=== PATIENT | female | born 1970 | race Caucasian/White ===

== ENCOUNTER 2018-05-31 17:14 | Inpatient (IN) | payer OTHER ==
[~2018-05-31] VITALS: Ht 165.1 cm; Wt 87.3 kg
--- NOTE | ~2018-05-31 | HEMODYNAMI ---
PATIENT:JAYSON ABURTO MEDICAL RECORD: [id number] : 74 LOCATION:[facility] D.2119 ADMISSION DATE: 06/01/18 Generatedon:06/01/201816:36 Patient name: JAYSON ABURTO Patient #: [id number] SSN: DO B: 1970 Date of study: 06/01/2018 Page: Of Hemodynamic Procedure Report Patient Data Patient Demographics Procedure consent was obtained First Name: JAYSON Gender: Female Last Name: CRISELDA : 1970 Patient #: [id number] Age: 48 year(s) Race: Additional ID: [id number] Contact details Address: [address] [place] [address] State: [facility] Zip code: [address] Admission Admission Data Admission Date: 06/01/2018 Admission Time: 15:23 Room #: D.2119 Procedure Procedure Types Cath Procedure Diagnostic Procedure LHC LH w/Coronaries Sedation Charges Moderate Sedation up to 15 minutes PCI Procedure Coronary Stent Coronary Stent Initial Procedure Description Procedure Date Procedure Date: 06/01/2018 Procedure Start Time: 16:14 Procedure End Time: 16:33 Procedure Staff Name Function Taqueria Villa MD Performing Physician Magaly Sanabria RT Monitor Brenda Dutton RT Scrub Sincere Joseph RN Nurse Procedure Data Cath Procedure Fluoroscopy Diagnostic fluoroscopy Total fluoroscopy Time: 4.9 time: 4.9 min min Diagnostic fluoroscopy Total fluoroscopy dose: 793 dose: 793 mGy mGy Contrast Material Contrast Material Type Amount (ml) Isovue 300 81 Entry Location Entry Primary Successful Side Size Upsize Upsize Entry Closure [place] ccessful Closure Location (Fr) 1 (Fr) 2 (Fr) Remarks Device Remarks Radial Right 6 Fr Mechanical artery Short Compression Estimated blood loss: 5 ml Procedure Complications No complications Procedure Medications Medication Administration Route Dosage 0.9% NaCl I.V. 100 ml/hr Oxygen etCO2 Nasal cannula 2 l/min Heparin Flush Bag added to field 2 bags (1000units/500ml NS) Lidocaine 2% added to field 20 Radial Cocktail added to field 1 syringe (Verapomil 2mg/Nitro 400mcg/Heparin 1500units) Versed I.V. 1 mg Fentanyl I.V. 50 mcg Radial Cocktail I.A. 1 syringe (Verapomil 2mg/Nitro 400mcg/Heparin 1500units) Versed I.V. 1 mg Fentanyl I.V. 50 mcg Heparin Bolus I.V. 5000 units Hemodynamics Rest Heart Rate: 71 (bpm) Snapshots Pre Cath Intra NCS Post Cath Vital Signs Time Heart Resp SPO2 etCO2 NIBP (mmHg) Rhythm Pain Sedation Rate (ipm) (%) (mmHg) Status Level (bpm) 16:10:13 71 18 96 33.9 182/111(145) NSR 0 (11) 10(A) , No pain 16:14:29 80 13 94 35.4 159/99(134) NSR 0 (11) 10(A) , No pain 16:18:39 86 10 94 35.4 155/96(110) NSR 0 (11) 10(A) , No pain 16:22:49 88 12 94 28.6 162/89(115) NSR 0 (11) 10(A) , No pain 16:27:07 61 17 20.3 118/70(88) NSR 0 (11) 10(A) , No pain 16:32:00 66 33 100 31.7 145/87(106) NSR 0 (11) 10(A) , No pain Medications Time Medication Route Dose Verified Delivered Reason Not es Effectiveness by by 16:10:55 0.9% NaCl I.V. 100 Sincere Sincere Per physician ml/hr Opal Joseph RN RN 16:11:03 Oxygen etCO2 2 l/min Sincere Sincere Per physician Nasal Opal Joseph cannula RN RN 16:11:14 Heparin Flush added 2 bags Sincere Sincere used for Bag to Lorigan Lorigan procedure (1000units/500ml [facility] RN RN NS) 16:11:26 Lidocaine 2% added 20ml Sincere Sincere for local to vial Lorigan Lorigan anesthetic RN RN 16:11:38 Radial Cocktail added 1 Sincere Sincere used for (Verapomil to syringe Lorigan Lorigan procedure 2mg/Nitro field RN RN 400mcg/Heparin 1500units) 16:11:49 Versed I.V. 1 mg Sincere Sincere for sedation Opal Joseph RN, RN 16:11:58 Fentanyl I.V. 50 mcg Sincere Sincere for sedation Opal Joseph RN, RN 16:17:25 Radial Cocktail I.A. 1 Sincere Taqueria for (Verapomil syringe Lorigan Allen vasodilation 2mg/Nitro MADHAVI FUCHS 400mcg/Heparin 1500units) 16:17:33 Versed I.V. 1 mg Sincere Sincere for sedation Opal Joseph RN, RN 16:17:38 Fentanyl I.V. 50 mcg Sincere Sincere for sedation Opal Joseph RN, RN 16:22:29 Heparin Bolus I.V. 5000 Sincere Sincere for units Opal Joseph anticoagulation M[facility]AVI [facility]DRICKSONgreens keeper Log Time Note 15:48:02 Informed consent obtained and on chart 15:48:43 Diagnostic Cath Status : Elective 15:48:50 Sincere Joseph RN sent for patient. Start room use. 15:48:51 Time tracking: Regular hours (M-F 7:00 - 5:00) 15:48:55 Plan of Care:Hemodynamics will remain stable., Cardiac rhythm will remain stable., Comfort level will be maintained., Respiratory function will remain adequate., Patient/ family verbilizes understanding of procedure., Procedure tolerated without complication., Recovers from procedure without complications.. 15:59:59 Patient received from Med II to [facility] 2 Alert and oriented. Tansferred to table in Supine position. 16:00:00 Warm blankets applied, and mary hugger turned on for patient comfort. 16:00:01 Correct patient and procedure confirmed by team. 16:00:01 ECG and BP/O2 sat monitors applied to patient. 16:09:10 Baseline sample Acquired. 16:09:10 Vital chart was started 16:09:13 Rhythm: sinus rhythm 16:09:14 Full Disclosure recording started 16:09:17 H&P Date Dictated: 06/01/2018 New H&P dictated by physician.. 16:09:18 Pre-procedure instructions explained to patient. 16:09:20 Family in waiting room. 16:09:22 Pre-op teaching completed and patient verbalized understanding. 16:09:23 Patient NPO since Midnight. 16:09:24 Is the patient allergic to Iodine/contrast media? No. 16:09:25 Was the patient premedicated? No 16:09:26 Is patient on blood thinner?Yes 16:09:28 ACC The patient was administered the following blood thiners within the last 24 hours: ACCPlavix 16:10:48 Patient diabetic? No. 16:10:50 Previous problem with sedation/anesthesia? No ? 16:10:52 Snore? Yes 16:10:53 Sleep apnea? No 16:10:54 Deviated septum? No 16:10:54 Opens mouth fully? Yes 16:10:55 0.9% NaCl 100 ml/hr I.V. was administered by Sincere Joseph RN; Per physician; 16:10:55 Sticks out tongue? Yes 16:10:56 Airway obstruction? No ? 16:10:59 Dentures? No ? 16:11:01 Pre procedure: right dorsailis pedis pulse 2+ Normal; easily identifiable; not easily obliterated 16:11:03 Oxygen 2 l/min etCO2 Nasal cannula was administered by Sincere Joseph RN; Per physician; 16:11:03 Pre procedure: left dorsailis pedis pulse 2+ Normal; easily identifiable; not easily obliterated 16:11:05 Patient pain scale 0/10 ?. 16:11:11 IV patent on arrival in right forearm with 0.9% NaCl at [facility]. 16:11:13 Lab results completed and on chart. 16:11:14 Heparin Flush Bag (1000units/500ml NS) 2 bags added to field was administered by Sincere Joseph RN; used for procedure; 16:11:16 Right Radial & Right Groin area was prepped with chlora-prep and draped in sterile fashion 16:11:17 Alarms reviewed by R. N. 16:11:18 Sharps counted by scrub and verified by R.N. 16:11:19 Physician arrived 16:11:20 --------ALL STOP TIME OUT------ 16:11:20 Final Timeout: patient, procedure, and site verified with staff and physician. All members of the team are in agreement. 16:11:22 Right Radial & Right Groin site verified by team. 16:11:24 Physical assessment completed. ASA score P 2 - A patient with mild systemic disease as per Taqueria Villa MD. 16:11:26 Lidocaine 2% 20ml vial added to field was administered by Sincere Joseph RN; for local anesthetic; 16:11:27 Sedation plan: IV Moderate Sedation Medication:Versed, Fentanyl 16:11:30 Use device set Radial Dx or PCI 16:11:31 ACIST Syringe (82984) opened to sterile field. 16:11:31 Medline Cath Pack ([id number]) opened to sterile field. 16:11:32 Bag Decanter (2002S) opened to sterile field. 16:11:32 DIAGNOSTIC WIRE .035 260cm J wire (705048) opened to sterile field. 16:11:33 ACIST Hand Control (57515) opened to sterile field. 16:11:33 ACIST Manifold (16372) opened to sterile field. 16:11:33 Tegaderm 4 x 4 (1626W) opened to sterile field. 16:11:34 MBrace Wrist Support ([id number]) opened to sterile field. 16:11:38 Radial Cocktail (Verapomil 2mg/Nitro 400mcg/Heparin 1500units) 1 syringe added to field was administered by Sincere Joseph RN; used for procedure; 16:11:49 Versed 1 mg I.V. was administered by Sincere Joseph RN; for sedation; 16:11:58 Fentanyl 50 mcg I.V. was administered by Sincere Joseph RN; for sedation; 16:12:10 SHEATH 6FR RAIN ([id number]) NO COST SUPPLY opened to sterile field. 16:14:27 Procedure started. 16:14:47 Local anesthetic to right radial artery with Lidocaine 2% by Taqueria Villa MD.INITIAL ACCESS ONLY 16:17:12 A 6 Fr Short sheath was inserted into the Right Radial artery 16:17:25 Radial Cocktail (Verapomil 2mg/Nitro 400mcg/Heparin 1500units) 1 syringe I.A. was administered by Taqueria Villa MD; for vasodilation; 16:17:33 Versed 1 mg I.V. was administered by Sincere Joseph RN; for sedation; 16:17:38 Fentanyl 50 mcg I.V. was administered by Sincere Joseph RN; for sedation; 16:19:03 LCA angiography performed. 16:19:06 Injector settings: Ml/sec: 3, Volume: 6, 16:21:29 RCA angiography performed. 16:21:32 Injector settings: Ml/sec: 3, Volume: 6, 16:21:36 Catheter removed. 16::59 GUIDE 6FR XBLAD 3.5 catheter ([id number]) opened to sterile field. 16:22:01 INFLATOR Merit BasixCompak (PJ3696) opened to sterile field. 16:22: WHISPER 300cm guide wire ([id number]) opened to sterile field. 16:22:13 6 Fr xblad 3.5 guide catheter was inserted over the wire 16::17 whisper wire advanced. 16::29 Heparin Bolus 5000 units I.V. was administered by Sincere Joseph RN; for anticoagulation; 16::55 Wire advanced across lesion. 16:28:58 Place stent Inflation Number: 1 A CALISTA OTW 3.0 x 15 stent ([id number]) was prepped and advanced across the 1st Ob Jennifer. The stent was deployed at 16 SEBASTIEN for 0:30 (min:sec). 16:31:05 Stent catheter was removed intact over wire. 16:31:05 Wire removed. 16:31:05 Guide catheter removed. 16:31:08 TR BAND Standard ([id number]) opened to sterile field. 16:32:36 Sheath removed intact; hemostasis achieved with Mechanical Compression to the Right Radial artery. 16:32:37 Procedure ended.(Physican Out) 16:32:47 Fluoroscopy time 04.90 minutes. 16:32:50 Fluoroscopy dose: 793 mGy 16:32:50 Flurop Dose total: 793 16:32:54 Contrast amount:Isovue 300 81ml. 16:32:56 Sharps counted by scrub and verified by R.N. 16:33:00 TR band inflated with 10cc of air. 16:33:01 Insertion/operative site no bleeding no hematoma. 16:33:04 Post right radial artery:stable 16:33:06 Post Procedure Pulses reassessed and unchanged 16:33:08 Post procedure rhythm: unchanged. 16:33:10 Estimated blood loss: 5 ml 16:33:12 Post procedure instruction explained to patient.Patient verbalizes understanding. 16:33:12 Patient needs reinforcement of post procedure teaching. 16:33:28 Procedure type changed to Cath procedure, Diagnostic procedure, LHC, LHC w/Coronaries, Sedation Charges, Moderate Sedation up to 15 minutes, PCI procedure, Coronary Stent, Coronary Stent Initial 16:33:29 Procedure and supply charges have been captured, reviewed, submitted and are correct. 16:33:33 Procedure Complication : No complications 16:33:36 Vital chart was stopped 16:33:36 See physician's report for complete and final results. 16:33:44 Report given to [facility]. 16:33:47 Patient transfered to [facility] with Stretcher. 16:33:50 Procedure ended. 16:33:50 Full Disclosure recording stopped 16:34:04 ACC-PCI Only Patient was given prescriptions, or instructed by Taqueria Villa MD to start/continue the following medications upon discharge: Plavix 16:34:05 End room use (Document Last) Intervention Summary Intervention Notes Time ActionType Lesion and Equipment Action# Pressure Duration Attributes Used 16:28:58 Place stent 1st Ob Jennifer CALISTA OTW 3.0 1 16 00:30 x 15 stent ([id number]) Device Usage Item Name Manufacture Quantity Catalog Hospital Part Current Mini [facility] Lot# / Number Charge Number Stock Stock Serial# Code ACIST Syringe Acist 1 09022 526504 544812 843440 20 (81741) Medical Systems Inc Medline Cath Medline 1 [id number] 629237 62107 148423 5 Pack ([id number]) Bag Decanter Microtek 1 2001S 913318 18572 314505 5 (2001S) Medical Inc. DIAGNOSTIC [facility] [place] 1 917000 611524 921310 282939 30 WIRE .035 260cm J wire (041177) ACIST Hand Acist 1 67552 732917 498885 379763 5 Control Medical (60985) Systems Inc ACIST Acist 1 34913 494062 275597 826998 5 Manifold Medical (22434) Systems Inc Tegaderm 4 x 3M 1 1626W 432490 004606 849330 5 4 (1626W) MBrace Wrist Advanced 1 140-0250-00 654319 98443 912913 5 Support Vascular (234346604) Dynamics SHEATH 6FR Cardinal 1 2965083 950072 614323 5 [facility] (8482699) NO COST SUPPLY GUIDE 6FR Cardinal 1 [id number] 925217 960111 224112 10 XBLAD 3.5 Health catheter (98197391) INFLATOR Merit 1 QA0330 449219 479660 455053 15 [facility] Medical BasixCompak (KO2560) WHISPER 300cm Gage 1 [id number] 666103 543061 481754 5 guide wire Vascular (4543297SM) CALISTA OTW 3.0 Medtronic 1 [id number] 378798 2682935 932197 5 [id number] x 15 stent ([id number]) TR BAND Terumo 1 [id number] 717599 938449 578665 40 Standard ([id number]) Signature Audit [place] Stage Time Signature Unsigned Intra-Procedure 06/01/2018 Magaly Sanabria 4:36:32 PM RT(R) Signatures Monitor : Magaly Sanabria RT Signature : Date : Time : [facility] [address] [place] [address]
--- NOTE | 2018-05-31 19:43 | NUR ---
REPORT RECEIVED FROM RAGHU HENDRICKSON.
[2018-05-31 19:44] LABS: CKMB 1.6 U/L (0.0-3.6); CREATINE KINASE 52 UL (21-215)
[2018-05-31 19:47] LABS: TROPONIN-I 0.377 ng/mL (0.000-0.060)
[2018-05-31 20:00] VITALS: BP 175/110
[2018-05-31 22:51] VITALS: BP 175/110; BMI 32.0
[2018-06-01] VITALS: BP 124/82
[2018-06-01 01:44] LABS: CKMB 0.9 U/L (0.0-3.6); CREATINE KINASE 49 UL (21-215)
[2018-06-01 04:00] VITALS: BP 129/92
[2018-06-01 07:12] LABS: CKMB 0.5 U/L (0.0-3.6); CREATINE KINASE 40 UL (21-215)
[2018-06-01 07:13] LABS: TROPONIN-I 0.179 ng/mL (0.000-0.060)
--- NOTE | 2018-06-01 07:48 | NUR ---
ASSESSMENT DONE. DENIES NEEDS.
[2018-06-01 08:00] VITALS: BP 136/57
[2018-06-01 08:33] VITALS: Ht 165.1 cm; Wt 87.3 kg
[2018-06-01 08:51] LABS: BASOPHILS 0.3 % (0-2); EOSINOPHILS 1.8 % (0-7); HEMATOCRIT 40.8 % (36.0-48.0); LYMPHOCYTES 22.5 % (15-50); MCH 31.6 pg (26.0-34.0); MCHC 34.3 g/dL (31.0-37.0); MCV 92.1 fL (80.0-100.0); MEAN PLATELET VOLUME 9.4 fL (7.4-10.4); MONOCYTES 6.4 % (2-11); PLATELET COUNT 300 10x3/uL (130-400); RBC 4.43 10x6/uL (4.00-5.40); RDW 13.2 % (11.5-14.5); WBC 10.2 10x3/uL (4.8-10.8)
[2018-06-01 09:02] LABS: CALC OSMOLALITY 271 mosm/kg (275-300); CALCIUM 8.5 mg/dL (8.5-10.1); CHLORIDE - SERUM 103 mmol/L (98-107); CREATININE - SERUM 0.8 mg/dL (0.6-1.3); GLUCOSE 103 mg/dL (74-106); POTASSIUM - SERUM 4.4 mmol/L (3.5-5.1); SODIUM 136 mmol/L (136-145); UREA NITROGEN 13 mg/dL (7-18); eGFR NON AFRICAN AMERICAN 82 mL/min (90-120)
--- NOTE | 2018-06-01 09:33 | NUR ---
RESTS IN BED WITH CALL LIGHT IN REACH. NO NEEDS VOICED AT THIS TIME. WILL MONITOR.
[2018-06-01 12:06] VITALS: BP 143/91
[2018-06-01 15:17] VITALS: BP 140/90
--- NOTE | 2018-06-01 15:55 | NUR ---
TO MERCHANDISER PER BED
--- NOTE | 2018-06-01 19:18 | NUR ---
ASSESSMENT COMPLETE. PT A&O. RESPERATIONS EVEN ON RA. IV TO RIGHT ARM WITH NS INFUSING AT 100 CC/HR, SITE CLEAN AND DRY. INFLATED TR BAND NOTED TO RIGHT WRIST, NO ACITVE BLEEDING OR SWELLING NOTED AROUND INCISION SITE. SPLINT ALSO IN USE. PT DENIES PAIN OR NEEDS, BED LOW, CL IN REACH.
[2018-06-01 20:00] VITALS: BP 133/80
--- NOTE | 2018-06-01 21:13 | NUR ---
SMALL AMOUNT OF AIR RELEASED FROM TR BAND, NO BLEEDING NOTED.
--- NOTE | 2018-06-01 22:15 | NUR ---
TR BAND COMPLETELY REMOVED, NO SWELLING, BLEEDING OR HEMATOMA NOTED. COVERED INCISION WITH FOLEDED 2X2 AND TEGADERM, INSTRUCTED PT TO RESTRICT MOVEMENT OF WRIST AND TO NOTIFY NURSE IF SHE NOTICES ANY SWELLING OR BLEEDING.
[2018-06-02] VITALS: BP 150/84
[2018-06-02 04:00] VITALS: BP 132/92
--- NOTE | 2018-06-02 07:45 | NUR ---
AWAKE NO APPARENT DISTRESS. R RADIAL SITE CLEAN AND DRY NO BLEEDING NO EDEMA.
[2018-06-02 08:58] VITALS: BP 151/87
[2018-06-02] MEDS ORDERED: LOPRESSOR25 MG PO (11:32)
[2018-06-02] MEDS ORDERED: ASPIRIN325 MG PO (11:33)
[2018-06-02] MEDS ORDERED: PROTONIX40 MG PO (11:40)
[2018-06-02] MEDS ORDERED: PLAVIX75 MG PO (11:57)
--- NOTE | 2018-06-02 12:22 | NUR ---
PT UP AND WALKING THE HALLS. RR EVEN AND UNLABORED ON RA. AM MEDICATIONS ADMINISTERED. RECEIVED ORDERS FROM TO DISCHARGE PT ON 75MG PLAVIX ONCE DAILY. PT DENIES ANY NEEDS AT THIS TIME. WILL CTM.
--- NOTE | 2018-06-02 13:52 | MORECARE ---
CASE MANAGEMENT DISCHARGE SUMMARY PATIENT: JAYSON ABURTO UNIT: [id number] ADM DATE: 06/01/18 AGE: 48 : 74 SEX: F ROOM/BED: D.9109 AUTHOR: LESLIE SYLVESTER PHYSICIAN: REFERRING PHYSICIAN: BROOKLYNN BROOKE MD DATE OF SERVICE: 06/02/18 Discharge Plan Patient Name: JAYSON ABURTO Facility: [facility]:[place] : 1970 Planned Disposition: Home Anticipated Discharge Date: 06/03/18 Discharge Date: Expected LOS: 2 Initial Reviewer: [email or web address] Initial Review Date: 06/02/2018 Generated: 06/02/18 2:52 pm DCPIA - Discharge Planning Initial Assessment Updated by [email or web address]: Yasir Raines on 06/02/18 1:52 pm * Is the patient Alert and Oriented? Yes * How many steps to enter\exit or inside your home? NONE * PCP NONE * Pharmacy [facility] IN [place] * Preadmission Environment Home with Family * ADLs Independent * Equipment None * Other Equipment NO MEDICAL EQUIPMENT PROVIDER PREFERENCE * List name and contact numbers for known caregivers / representatives who currently or will assist patient after discharge: DANA ABURTO, SPOUSE, * Verbal permission to speak to the caregivers and representatives has been obtained from the patient. Yes * Community resources currently utilized None * Please name any agencies selected above. NONE * Additional services required to return to the preadmission environment? No * Can the patient safely return to the preadmission environment? Yes * Has this patient been hospitalized within the prior 30 days at any hospital? No Patient Name: JAYSON ABURTO Page [id number] at 1352 All edits/amendments must be made on the electronic document DICTATION DATE: 06/02/18 1352 SUPERVISOR CURING ROOM: DOUGLAS 06/02/18 1352 RPT#: [id number] DC DATE: STATUS: ADM IN [facility] [address] [place] [address] END OF REPORT
--- NOTE | 2018-06-02 13:53 | NUR ---
PT DISCHARGED HOME VIA WHEELCHAIR WITH FAMILY. SCRIPTS GIVEN. PT SIGNED PROPER DISCHARGE INSTRUCTION AND REMOVED ALL VALUABLES FROM THE ROOM. PIV REMOVED WITH CATHETER TIP FULLY INTACT. TELEMETRY REMOVED AND RETURNED.
--- NOTE | 2018-06-02 14:02 | MORECARE ---
CASE MANAGEMENT DISCHARGE SUMMARY PATIENT: JAYSON ABURTO UNIT: [id number] ADM DATE: 06/01/18 AGE: 48 : 74 SEX: F ROOM/BED: D.0820 AUTHOR: HIGINIODOC PHYSICIAN: REFERRING PHYSICIAN: BROOKLYNN BROOKE MD DATE OF SERVICE: 06/02/18 Discharge Plan Patient Name: JAYSON ABURTO Facility: [facility]:[place] : 1970 Planned Disposition: Home Anticipated Discharge Date: 06/03/18 Discharge Date: Expected LOS: 2 Initial Reviewer: [email or web address] Initial Review Date: 06/02/2018 Generated: 06/02/18 3:01 pm Comments DCP- Discharge Planning Updated by [email or web address]: Yasir Raines on 06/02/18 12:[address] Patient Name: JAYSON ABURTO Admission Status: Elective Accout number: [id number] Admission Date: 06-01-2018 : 1970 Admission Diagnosis: Attending: BROOKLYNN BROOKE Current LOS: 1 Anticipated DC Date: 06-03-2018 Planned Disposition: Home Primary Insurance: [employer]ICA[employer] Discharge Planning Comments: CM RECEIVED DISCHARGE ORDER, MET WITH PT AND SPOUSE IN ROOM TO DISCUSS DISCHARGE PLANNING AND NEEDS. JAYSON ABURTO provided verbal consent to discuss current and ongoing needs with/in the presence of: SPOUSE, DANA. PT REPORTS LIVING AT HOME INDEPENDENTLY WITH HER SPOUE. PT HAS NO MEDICAL EQUIPMENT AND NO OUTSIDE SERVICES ASSISTING IN THE HOME. CM DISCUSSED AVAILABILITY OF HOME HEALTH, REHAB SERVICES AND MEDICAL EQUIPMENT. PT DENIES DISCHARGE NEEDS, REPORTS HER SPOUSE IS HERE TO PICK HER UP FOR DISCHARGE HOME NOW. MISSION COORDINATOR NURSE NOTIFIED. Surgical Services Asst: Yasir Raines DCPIA - Discharge Planning Initial Assessment Updated by [email or web address]: Yasir Raines on 06/02/18 1:52 pm * Is the patient Alert and Oriented? Yes * How many steps to enter\exit or inside your home? NONE * PCP NONE * Pharmacy [facility] [place] * Preadmission Environment Home with Family * ADLs Independent * Equipment None * Other Equipment NO MEDICAL EQUIPMENT PROVIDER PREFERENCE * List name and contact numbers for known caregivers / representatives who currently or will assist patient after discharge: DANA ABURTO, SPOUSE, * Verbal permission to speak to the caregivers and representatives has been obtained from the patient. Yes * Community resources currently utilized None * Please name any agencies selected above. NONE * Additional services required to return to the preadmission environment? No * Can the patient safely return to the preadmission environment? Yes * Has this patient been hospitalized within the prior 30 days at any hospital? No Last DP export: 06/02/18 12:52 p Patient Name: JAYSON ABURTO Page [phone] at 1402 All edits/amendments must be made on the electronic document DICTATION DATE: 06/02/18 1401 POCKETBOOK MAKER: DOUGLAS 06/02/18 1401 RPT#: [id number] DC DATE: STATUS: ADM IN [facility] [address] [place] [address] END OF REPORT
--- NOTE | 2018-06-05 12:55 | OP ---
PATIENT NAME: JAYSON ABURTO MEDICAL RECORD: [id number] :74 LOCATION:D.M2 D.2119 ADMISSION DATE:06/01/18 SURGEON: FELICIANO RAMON MD DATE OF OPERATION: 06/01/2018 PROCEDURE: Left heart catheterization, selective coronary angiography, right radial approach. CATHETERS: A 5-Sami sheath, 5/4 left and right Li, 5/4 pig. The procedure was well tolerated. The patient was returned to the qiu. Sheath was removed. TR band was placed. FINDINGS: Left ventriculography in 30-degree MELTON view, not performed. CORONARY ANATOMY: LEFT MAIN: Left main is free of disease. LAD: Free of disease in the diagonal system. CIRCUMFLEX: It is a codominant system. Circumflex has a basically subtotal stenosis at distal portion of 90%. RIGHT CORONARY: Right coronary has about 80% stenosis in mid portion. PLAN: Intervention to the circumflex with intervention to the right at a later date. DESCRIPTION OF PROCEDURE: Using indwelling sheath, EBU 3.5 guiding catheter provided fair guide catheter support followed by 300-cm Whisper wire was placed across the 90% plus stenosis in the circumflex down this portion of the vessel. Stent deployed was 3.0 x 15-mm Rangel drug-eluting stent up to 14 and 16 atmospheres. Final angiography shows excellent resolution of this greater than 90% stenosis with no significant residual. ADE flow was 3 throughout the procedure. We will plan for intervention at a later date. TRANSINT:[id number] Voice Confirmation ID: [id number] DOCUMENT ID: [id number] FELICIANO RAMON MD at 1255 CC: [id number] DICTATION DATE: 06/01/18 1641 GUIDEMAN: 06/01/18 1931 DIS IN 06/02/18 [facility] [address] [facility], [place] [address]
== END 2018-06-02 14:09 | disposition home or self-care (01) | DRG 247 ==
LOC: D.ER 17:14 → D.EDHOLD 18:46 → D.M2 18:46 → OBSVTIME 06-01 15:20 → D.M2 06-01 15:23
PROVIDERS: Family Medicine; Internal Medicine Interventional Cardiology; ADMIT Internal Medicine Nephrology
PROC: B2111ZZ Fluoroscopy of Multiple Coronary Arteries using Low Osmolar Contrast (ICD-10-PCS; 2018-06-01)
PROC: 027034Z Dilation of Coronary Artery, One Artery with Drug-eluting Intraluminal Device, Percutaneous Approach (ICD-10-PCS; principal; 2018-06-01 15:48)
PROC: 4A023N7 Measurement of Cardiac Sampling and Pressure, Left Heart, Percutaneous Approach (ICD-10-PCS; 2018-06-01 15:48)
DX: I21.A1 Myocardial infarction type 2 (principal); F17.213 Nicotine dependence, cigarettes, with withdrawal; I10 Essential (primary) hypertension; G40.909 Epilepsy, unspecified, not intractable, without status epilepticus

== ENCOUNTER 2018-06-30 10:23 | Outpatient (CLI) | payer OTHER ==
[~2018-06-30] VITALS: Ht 162.6 cm; Wt 87.3 kg
--- NOTE | ~2018-06-30 | HEMODYNAMI ---
PATIENT:JAYSON ABURTO MEDICAL RECORD: [id number] : 74 LOCATION:DFAREED ADMISSION DATE: 06/30/18 Generatedon:06/30/201813:30 Patient name: AJYSON ABURTO Patient #: [id number] SSN: DO B: 1970 Date of study: 06/30/2018 Page: Of Hemodynamic Procedure Report Patient Data Patient Demographics Procedure consent was obtained First Name: JAYSON Gender: Female Last Name: CRISELDA : 1970 Patient #: [id number] Age: 48 year(s) Race: Additional ID: [id number] Contact details Address: [address] [place] [address] State: [facility] Zip code: [address] Past Medical History Allergies Allergen Reaction Date Comments Reported Other allergy 06/30/2018 N Admission Admission Data Admission Date: 06/30/2018 Admission Time: 10:23 Admit Source: Other Lab Results Lab Result Date: 06/30/2018 Lab Result Time: 0:00 Biochemistry Name Units Result Min Max BUN mg/dl 21 --(----)-* 7 18 Creatinine mg/dl 0.7 --(*---)-- 0.6 1.3 CBC Name Units Result Min Max Hematocrit % 40.9 -*(----)-- 42 54 Hemoglobin g/dl 14.2 --(*---)-- 13.5 17.5 Procedure Procedure Types Cath Procedure Diagnostic Procedure Sedation Charges Moderate Sedation up to 15 minutes PCI Procedure Coronary Stent Coronary Stent Initial Procedure Description Procedure Date Procedure Date: 06/30/2018 Procedure Start Time: 13:11 Procedure End Time: 13:29 Procedure Staff Name Function Taqueria Villa MD Performing Physician Kel Vivar RT Monitor Trena Long RT Scrub Magaly Sanabria RT Scrub Sincere Joseph RN Nurse Procedure Data Cath Procedure Fluoroscopy Diagnostic fluoroscopy Total fluoroscopy Time: 5.1 time: 5.1 min min Diagnostic fluoroscopy Total fluoroscopy dose: 638 dose: 638 mGy mGy Contrast Material Contrast Material Type Amount (ml) Isovue 300 60 Entry Location Entry Primary Successful Side Size Upsize Upsize Entry Closure Succes sful Closure Location (Fr) 1 (Fr) 2 (Fr) Remarks Device Remarks Femoral Right 6 Fr Exoseal artery Short Estimated blood loss: 10 ml Procedure Complications No complications Procedure Medications Medication Administration Route Dosage 0.9% NaCl I.V. 100 ml/hr Heparin Flush Bag added to field 2 bags (1000units/500ml NS) Lidocaine 2% added to field 20 Versed I.V. 1 mg Fentanyl I.V. 50 mcg Versed I.V. 1 mg Fentanyl I.V. 50 mcg Versed I.V. 1 mg Heparin Bolus I.V. 5000 units Hemodynamics Rest HGB: 14.2 (g/dl) Heart Rate: 59 (bpm) Snapshots Pre Cath Intra NCS Post Cath Vital Signs Time Heart Resp SPO2 etCO2 NIBP (mmHg) Rhythm Pain Sedation Rate (ipm) (%) (mmHg) Status Level (bpm) 12:48:44 60 15 100 38.3 185/106(150) NSR 0 (11) 10(A) , No pain 12:53:04 64 14 100 39.1 180/103(161) NSR 0 (11) 10(A) , No pain 13:01:32 68 13 98 30 156/96(120) NSR 0 (11) 10(A) , No pain 13:05:44 67 14 97 39.8 153/93(123) NSR 0 (11) 10(A) , No pain 13:10:59 68 16 100 37.6 157/99(124) NSR 0 (11) 10(A) , No pain 13:15:15 76 13 98 34.5 131/83(105) NSR 0 (11) 9(A) , No pain 13:19:19 69 14 98 30.8 140/93(128) NSR 0 (11) 9(A) , No pain 13:23:25 76 14 98 36 142/97(124) NSR 0 (11) 9(A) , No pain 13:27:35 81 17 96 36.8 163/106(133) NSR 0 (11) 9(A) , No pain Medications Time Medication Route Dose Verified Delivered Reason Notes Effectiveness by by 12:51:01 0.9% NaCl I.V. 100 Sincere Sincere Per physician ml/hr Opal Joseph RN RN 12:51:21 Heparin Flush added 2 Sincere Sincere used for Bag to bags Opal Joseph procedure (1000units/500ml field RN RN NS) 12:51:32 Lidocaine 2% added 20ml Sincere Sincere for local to vial Opal Joseph anesthetic field RN RN 13:00:39 Versed I.V. 1 mg Sincere Sincere for sedation Opal Joseph RN RN 13:00:47 Fentanyl I.V. 50 Sincere Sincere for sedation mcg Opal Joseph RN RN 13:09:37 Versed I.V. 1 mg Sincere Sincere for sedation Opal Joseph RN RN 13:09:43 Fentanyl I.V. 50 Sincere Sincere for sedation mcg Opal Joseph RN RN 13:12:47 Versed I.V. 1 mg Sincere Sincere for sedation Opal Joseph RN RN 13:14:17 Heparin Bolus I.V. 5000 Sincere Sincere for units Opal Joseph anticoagulation RN appliance tester Log Time Note 12:36:59 Informed consent obtained and on chart 12:37:02 Admit Source: Other 12:37:54 Diagnostic Cath status Elective 12:38:08 Sincere Joseph RN sent for patient. Start room use. 12:38:09 Time tracking: Regular hours (M-F 7:00 - 5:00) 12:38:13 Plan of Care:Hemodynamics will remain stable., Cardiac rhythm will remain stable., Comfort level will be maintained., Respiratory function will remain adequate., Patient/ family verbilizes understanding of procedure., Procedure tolerated without complication., Recovers from procedure without complications.. 12:40:17 Patient received from Pre/Post Procedure Room to CCL 2 Alert and oriented. Tansferred to table in Supine position. 12:40:18 Warm blankets applied, and mary hugger turned on for patient comfort. 12:40:18 Correct patient and procedure confirmed by team. 12:40:19 ECG and BP/O2 sat monitors applied to patient. 12:40:23 H&P Date Dictated: 06/30/2018 New H&P dictated by physician.. 12:40:24 Pre-procedure instructions explained to patient. 12:40:24 Pre-op teaching completed and patient verbalized understanding. 12:40:26 Family in waiting room. 12:40:27 Patient NPO since Breakfast. 12:47:37 Patient allergic to Other allergyPCN 12:47:38 Vital chart was started 12:47:39 Baseline sample Acquired. 12:47:42 Rhythm: sinus rhythm 12:47:44 Full Disclosure recording started 12:47:48 Is the patient allergic to Iodine/contrast media? No. 12:47:49 Is patient on blood thinner?Yes 12:47:50 ACC The patient was administered the following blood thiners within the last 24 hours: ACCPlavix 12:47:52 Patient diabetic? No. 12:47:54 Previous problem with sedation/anesthesia? No ? 12:47:55 Snore? Yes 12:47:56 Sleep apnea? No 12:47:57 Deviated septum? No 12:47:57 Opens mouth fully? Yes 12:47:58 Sticks out tongue? Yes 12:48:01 Airway obstruction? No ? 12:48:02 Dentures? No ? 12:48:05 Pre procedure: right dorsailis pedis pulse 2+ Normal; easily identifiable; not easily obliterated 12:48:07 Patient pain scale 0/10 ?. 12:48:10 IV patent on arrival in left forearm with 0.9% NaCl at [facility]. 12:49:06 Lab Result : BUN 21 mg/dl 12:49:06 Lab Result : Creatinine 0.7 mg/dl 12:49:06 Lab Result : Hemoglobin 14.2 g/dl 12:49:06 Lab Result : Hematocrit 40.9 % 12:50:48 Lab results completed and on chart. 12:50:50 Right groin area was prepped with chlora-prep and draped in sterile fashion 12:50:51 Alarms reviewed by R. N. 12:50:51 Sharps counted by scrub and verified by R.N. 12:50:54 Use device set Femoral Dx 12:50:58 ACIST Syringe (04057) opened to sterile field. 12:50:58 Bag Decanter (2002S) opened to sterile field. 12:50:59 Medline Cath Pack ([id number]) opened to sterile field. 12:51:01 0.9% NaCl 100 ml/hr I.V. was administered by Sincere Lorigan RN; Per physician; 12:51:01 Tegaderm 4 x 4 (1626W) opened to sterile field. 12:51:02 ACIST Manifold (34603) opened to sterile field. 12:51:03 ACIST Hand Control (26820) opened to sterile field. 12:51:06 DIAGNOSTIC WIRE .035 260cm J wire (482472) opened to sterile field. 12:51:21 Heparin Flush Bag (1000units/500ml NS) 2 bags added to field was administered by Sincere Joseph RN; used for procedure; 12:51:21 SHEATH 6FR [place] (WQW040) opened to sterile field. 12:51:25 INFLATOR Merit BasixCompak (BO2017) opened to sterile field. 12:51:32 Lidocaine 2% 20ml vial added to field was administered by Sincere Joseph RN; for local anesthetic; 12:51:34 WHISPER 300cm guide wire ([id number]) opened to sterile field. 12:54:40 Patient not . Patient has had tubal. 12:57:24 Physician arrived 12:57:24 --------ALL STOP TIME OUT------ 12:57:25 Final Timeout: patient, procedure, and site verified with staff and physician. All members of the team are in agreement. 12:57:27 Right groin site verified by team. 12:57:30 Fire Safety Assessment: A--An alcohol-based skin anteseptic being used preoperatively., C--Open oxygen or nitrous oxide is being used., D--An ESU, laser, or fiber-optic light is being used. 12:57:34 Physical assessment completed. ASA score P 2 - A patient with mild systemic disease as per Taqueria Villa MD. 12:57:38 Sedation plan: IV Moderate Sedation Medication:Versed, Fentanyl 13:00:39 Versed 1 mg I.V. was administered by Sincere Joseph RN; for sedation; 13:00:47 Fentanyl 50 mcg I.V. was administered by Sincere Joseph RN; for sedation; 13:09:37 Versed 1 mg I.V. was administered by Sincere Joseph RN; for sedation; 13:09:43 Fentanyl 50 mcg I.V. was administered by Sincere Joseph RN; for sedation; 13:10:14 Zero performed for pressure channel P1 13:10:26 Zero performed for pressure channel P1 13:10:54 Zero performed for pressure channel P1 13:10:58 Zero performed for pressure channel P1 13:11:01 Zero performed for pressure channel P1 13:11:09 Zero performed for pressure channel P1 13:11:13 Zero performed for pressure channel P1 13:11:27 Procedure started. 13:11:30 Local anesthetic to right femoral artery with Lidocaine 2% by Taqueria Villa MD.INITIAL ACCESS ONLY 13:11:44 A 6 Fr Short sheath was inserted into the Right Femoral artery 13:12:19 GUIDE 6FR AR 1.0 catheter ([id number]) opened to sterile field. 13:12:27 6 Fr AR 1 guide catheter was inserted over the wire 13:12:47 Versed 1 mg I.V. was administered by Sincere Joseph RN; for sedation; 13:13:12 Guide Catheter removed. pressure damping. 13:13:16 GUIDE 6FR AR 1.0 SH catheter ([id number]) opened to sterile field. 13:13:35 6 Fr AR1 SH guide catheter was inserted over the wire 13:14:17 Heparin Bolus 5000 units I.V. was administered by Sincere Joseph RN; for anticoagulation; 13:15:58 WHISPER wire advanced. 13:17:36 Wire advanced across lesion. 13:18:22 Place stent Inflation Number: 1 A CALISTA OTW 3.0 x 30 stent ([id number]) was prepped and advanced across the Mid RCA. The stent was deployed at 14 SEBASTIEN for 0:30 (min:sec). 13:20:54 Stent catheter was removed intact over wire. 13:24:35 Place stent Inflation Number: 1 A CALISTA RX 3.0 x 30 stent ([id number]) was prepped and advanced across the Prox RCA. The stent was deployed at 14 SEBASTIEN for 0:30 (min:sec). 13:25:09 Inflation number: 2 The stent balloon was then re-inflated across the Prox RCA to 14 SEBASTIEN for 0:45 (min:sec). 13:25:30 Stent catheter was removed intact over wire. 13:25:31 Wire removed. 13:25:31 Guide catheter removed. 13:25:42 EXOSEAL 6Fr (EX600) opened to sterile field. 13:26:21 Sheath removed intact; hemostasis achieved with Exoseal to the Right Femoral artery. 13::38 Procedure ended.(Physican Out) 13::47 Fluoroscopy time 05.10 minutes. 13:27:08 Flurop Dose total: 638 13::08 Fluoroscopy dose: 638 mGy 13:27:18 Contrast amount:Isovue 300 60ml. 13:28:29 Sharps counted by scrub and verified by R.N. 13:28:31 Insertion/operative site no bleeding no hematoma. 13:28:33 Post-op/insertion site Right Femoral artery dressed using a 4 x 4 and Tegaderm. 13:28:37 Post right femoral artery:stable, soft, clean and dry 13::38 Post Procedure Pulses reassessed and unchanged 13:28:40 Post-procedure physical assessment completed. ASA score P 2 - A patient with mild systemic disease as per Taqueria Villa MD. 13:28:42 Post procedure rhythm: unchanged. 13:28:44 Estimated blood loss: 10 ml 13:28:45 Post procedure instruction explained to patient.Patient verbalizes understanding. 13:28:45 Patient needs reinforcement of post procedure teaching. 13:28:58 Procedure type changed to Cath procedure, Diagnostic procedure, Sedation Charges, Moderate Sedation up to 15 minutes, PCI procedure, Coronary Stent, Coronary Stent Initial 13:29:25 Procedure and supply charges have been captured, reviewed, submitted and are correct. 13:29:27 Procedure Complication : No complications 13:29:28 Vital chart was stopped 13:29:29 See physician's report for complete and final results. 13:29:30 Report given to Pre/Post Procedure Room. 13:29:32 Patient transfered to Pre/Post Procedure Room with Stretcher. 13:29:34 Procedure ended. 13:29:34 Full Disclosure recording stopped 13:29:37 End room use (Document Last) Intervention Summary Intervention Notes Time ActionType Lesion and Equipment Used Action# Pressure Duration Attributes 13:18:22 Place stent Mid RCA CALISTA OTW 3.0 x 1 14 00:30 30 stent ([id number]) 13:24:35 Place stent Prox RCA CALISTA RX 3.0 x 1 14 00:30 30 stent ([id number]) 13:25:09 Reinflate Prox RCA CALISTA RX 3.0 x 2 14 00:45 stent 30 stent balloon ([id number]) Device Usage Item Name Manufacture Quantity Catalog Hospital [facility] Lot# / Number Charge Number Stock Stock Serial# Code ACIST Syringe Acist 1 59892 227612 342494 589436 20 (41439) Medical Systems Inc Bag Decanter Microtek 1 2001S 252660 36965 137115 5 (2001S) Medical Inc. Medline Cath Medline 1 [id number] 271758 14662 112408 5 Pack ([id number]) Tegaderm 4 x 4 3M 1 1626W 053448 373100 754709 5 (1626W) ACIST Manifold Acist 1 01300 760143 586788 508021 5 (38985) Medical Systems Inc ACIST Hand Acist 1 48842 187399 919199 626245 5 Control Medical (01513) Systems Inc DIAGNOSTIC [place] 1 632341 794966 833425 065323 30 WIRE .035 260cm J wire (553590) SHEATH 6FR Terumo 1 YUZ641 469295 370135 135343 40 [place] (ERX847) INFLATOR Merit Merit 1 NV7989 968471 988788 939666 [facility] (HK7348) WHISPER 300cm Gage 1 [id number] 267800 807033 701629 5 guide wire Vascular ([id number]) GUIDE 6FR AR Medtronic 1 [id number] 387650 40350 498247 1 1.0 catheter (ND0LB38) GUIDE 6FR AR Medtronic 1 [id number] 309251 36504 346660 1 1.0 SH catheter ([id number]) CALISTA OTW 3.0 x Medtronic 1 [id number] 846508 3998743 466669 5 [id number] 30 stent ([id number]) CALISTA RX 3.0 x Medtronic 1 [id number] 418093 7861031 539309 5 [id number] 30 stent ([id number]) EXOSEAL 6Fr Cardinal 1 EX600 262335 615720 579995 10 (EX600) Health Signature Audit [place] Stage Time Signature Unsigned Intra-Procedure 06/30/2018 Kel Vivar 1:30:13 PM RT(R) Signatures Monitor : Kel Vivar RT Signature : Date : Time : [facility] [address] [facility] [address]
[~2018-06-30 10:23] MED LIST: ASPIRIN325 MG PO; LOPRESSOR25 MG PO; PLAVIX75 MG PO; PROTONIX40 MG PO
[2018-06-30 10:54] VITALS: BP 156/81; Ht 162.6 cm; Wt 87.3 kg
[2018-06-30 11:13] LABS: BASOPHILS 0.2 % (0-2); EOSINOPHILS 1.5 % (0-7); HEMATOCRIT 40.9 % (36.0-48.0); HEMOGLOBIN 14.2 g/dL (12-16); IMMATURE GRANULOCYTES 0.2 % (0-5); LYMPHOCYTES 28.4 % (15-50); MCH 31.5 pg (26.0-34.0); MCHC 34.7 g/dL (31.0-37.0); MCV 90.7 fL (80.0-100.0); MEAN PLATELET VOLUME 9.9 fL (7.4-10.4); MONOCYTES 7.7 % (2-11); PLATELET COUNT 269 10x3/uL (130-400); RBC 4.51 10x6/uL (4.00-5.40); RDW 13.2 % (11.5-14.5); WBC 9.3 10x3/uL (4.8-10.8)
[2018-06-30 11:20] LABS: CALC OSMOLALITY 276 mosm/kg (275-300); CALCIUM 9.2 mg/dL (8.5-10.1); CARBON DIOXIDE 23.7 mmol/L (21.0-32.0); CHLORIDE - SERUM 101 mmol/L (98-107); CREATININE - SERUM 0.7 mg/dL (0.6-1.3); GLUCOSE 98 mg/dL (74-106); POTASSIUM - SERUM 4.4 mmol/L (3.5-5.1); SODIUM 137 mmol/L (136-145); UREA NITROGEN 21 mg/dL (7-18); eGFR NON AFRICAN AMERICAN > 90 mL/min (90-120)
--- NOTE | 2018-06-30 13:55 | NUR ---
2L NC, NO RESP DISTRESS. RIGHT GROIN 6F EXOSEAL CDI, NO BLEEDING OR HEMATOMA NOTED. NO C/O PAIN OR NAUSEA. VSS. FAMILY AT BEDSIDE, CALL LIGHT WITHIN REACH.
--- NOTE | 2018-06-30 14:25 | NUR ---
RESTING QUIETLY WITH EYES CLOSED. RIGHT GROIN 6F EXOSEAL CDI, NO BLEEDING OR HEMATOMA NOTED. NO C/O PAIN OR NAUSEA. VSS. WILL CONTINUE TO MONITOR.
--- NOTE | 2018-06-30 14:55 | NUR ---
CONTINUES TO REST QUIETLY WITH NO C/O. RIGHT GROIN 6F EXOSEAL CDI, NO BLEEDING OR HEMATOMA NOTED. NO NEEDS VOICED. VSS. CALL LIGHT WITHIN REACH.
--- NOTE | 2018-06-30 15:30 | NUR ---
C/O SQUEEZING PAIN IN LOWER CHEST. NORCO ORDERED PER DR RAMON. VSS. WILL CONTINUE TO MONITOR.
--- NOTE | 2018-06-30 16:00 | NUR ---
SIPPING ON DRINK AND EATING SANDWICH WITH NO C/O NAUSEA. STATES PAIN IS MUCH BETTER. RIGHT GROIN 6F EXOSEAL CDI, NO BLEEDING OR HEMATOMA NOTED. VSS. CALL LIGHT WITHIN REACH.
--- NOTE | 2018-06-30 16:35 | NUR ---
HOB ELEVATED 30 DEGREES. RIGHT GROIN 6F EXOSEAL CDI, NO BLEEDING OR HEMATOMA NOTED. NO C/O AT THIS TIME. VSS. WILL CONTINUE TO MONITOR CLOSELY.
--- NOTE | 2018-06-30 17:10 | NUR ---
LEFT PIV D/C'D WITH CATHETER INTACT, BAND AID TO SITE. UP TO BEDSIDE TO GET DRESSED. AMBULATE TO RESTROOM.
--- NOTE | 2018-06-30 17:20 | NUR ---
DSICHARGE INSTRUCTIONS ALONG WITH STENT CARD GIVEN, VERBALIZED UNDERSTANDING.
--- NOTE | 2018-06-30 17:30 | NUR ---
TAKEN OUT VIA WHEELCHAIR BY CATH OPERATOR CAVITY PUMP. LEFT FACILITY WITH FAMILY AND ALL PERSONAL BELONGINGS.
--- NOTE | 2018-07-03 10:16 | HP ---
PATIENT: JAYSON ABURTO MEDICAL RECORD: [id number] ACCOUNT: [id number] LOCATION:MEKHI : 74 ADMISSION DATE: 06/30/18 PCP: SHAYLA FOX MD HISTORY AND PHYSICAL EXAMINATION HISTORY OF PRESENT ILLNESS: A 48-year-old female with a known history of coronary artery disease, status post recent intervention to the LAD. She had residual critical disease of the right, was brought back for repeat intervention. PHYSICAL EXAMINATION: GENERAL: Well-developed and well-nourished female, in no acute distress. HEENT: Normocephalic and atraumatic. NECK: No bruits noted. HEART: Regular. II/ systolic ejection murmur. LUNGS: Good air excursion. ABDOMEN: Soft, nontender. EXTREMITIES: Pulses 2+. IMPRESSION AND PLAN: Intervention to the right as previously scheduled. TRANSINT:[id number] Voice Confirmation ID: [id number] DOCUMENT ID: [id number] FELICIANO RAMON MD at 1016 CC: [id number] DICTATION DATE: 06/30/18 1333 GUTTER INSTALLER: 06/30/18 1419 DEP CLI 06/30/18 [id number] [place] [address]
--- NOTE | 2018-07-03 10:16 | OP ---
PATIENT NAME: JAYSON ABURTO MEDICAL RECORD: [id number] :74 LOCATION:D.CAT ADMISSION DATE: SURGEON: FELICIANO RAMON MD DATE OF OPERATION: 06/30/2018 PTCA AND STENT REPORT PROCEDURE: The right coronary. DESCRIPTION OF PROCEDURE: After a 6-Nepali sheath placed in right femoral artery. AR1 with side holes provided good catheter support followed by a 300-cm Whisper wire was placed across the diffusely diseased right coronary down this portion of this vessel. Next, stent deployed were 3.0 x 30 and a second 3.0 x 30, both [place] drug eluting stents were inflated up to 14 atmospheres for 45 seconds. Final angiography shows excellent resolution severely diffuse right coronary artery stenosis, 90 at its tightest portion. There is no significant residual. ADE flow was 3 throughout the procedure. The patient was previously on Plavix. Sheath closed with ExoSeal device. TRANSINT:[id number] Voice Confirmation ID: [id number] DOCUMENT ID: [id number] FELICIANO RAMON MD at 1016 CC: [id number] DICTATION DATE: 06/30/18 1332 WEB DEVELOPER PROGRAMMER: 06/30/18 2146 DEP CLI 06/30/18 [facility] [address] [place] [address]
== END 2018-06-30 17:30 | disposition home or self-care (01) ==
LOC: D.CATH 10:23
PROVIDERS: ATTEND Internal Medicine Interventional Cardiology
DX: I25.119 Atherosclerotic heart disease of native coronary artery with unspecified angina pectoris (principal); Z95.5 Presence of coronary angioplasty implant and graft; Z01.812 Encounter for preprocedural laboratory examination